=== PATIENT | female | born 1955 | race African-American/Black ===

== ENCOUNTER 2018-07-23 17:32 | Observation (INO) | payer BC, OTHER ==
[2018-07-23] MEDS ORDERED: SODIUM CHLORIDE 500 ML IV STA (17:56)
[2018-07-23] MEDS ORDERED: ACETAMINOPHEN 1000 MG/100 ML VIAL (NON FORMULARY) IVPB ONE (17:58)
--- NOTE | 2018-07-23 18:05 | PDOC ---
History of Present Illness - General Chief Complaint: Syncope/Near Syncope Stated Complaint: DIZZY, FAINT Time Seen by Provider: 07/23/18 17:48 History Source: Patient Exam Limitations: No Limitations - History of Present Illness Initial Comments: 07/23/18 18:00 Patient is a 62F with history of HTN, DM, HLD, prior stroke here today complaining of syncope. Patient states that she had a headache, worse on the right aspect of her head, then started feeling weak and dizzy, nearly passing out. Did not lose consciousness. Did not strike head. 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 Event happened after three hour restorationism service. Denies chest pain, shortness of breath, leg swelling, prior blood clots, fevers , chills, nausea, vomiting. Denies abdominal pain. Endorses polyuria related to her diabetes. No headache at this time. NIH Stroke Scale - Last Known Well Date/Time & Onset Date Last Known Well: 07/23/18 Time Last Known Well: 16:45 - Initial Evaluation Level of consciousness: Alert Ask patient the month and their age: Answers both correctly Ask patient to open & close eyes; make fist and let go: Obeys both correctly Best gaze (horizontal eye movement): Normal Visual field testing: No visual field loss Facial paresis (Show teeth/raise eyebrows/close eyes tight): Normal symmetrical movement Motor Function: Left Arm: Normal Motor Function: Right Arm: Normal (extends arm 90 (or 45) degrees for 10 seconds without drift Motor Function: Left Leg: Normal (extends leg 30 degrees for 5 seconds without drift) Motor Function: Right Leg: Normal (extends leg 30 degrees for 5 seconds without drift) Limb Ataxia: No ataxia Sensory(Use pinprick test arms,legs,trunk,face/side to side): Normal Best language (Describe picture, name items, read sentences): No Aphasia Dysarthria (read several words): Normal articulation Extinction and Inattention: No abnormality - Total Score NIH Stroke Scale Score: 0 Past History - Past Medical History Allergies/Adverse Reactions: Allergies Allergy/AdvReac Type Severity Reaction Status Date / Time No Known Allergies Allergy Verified 07/23/18 17:56 Home Medications: Ambulatory Orders Metformin HCl [Metformin HCl ER] 1 gm PO BID 06/27/15 Metoprolol Tartrate 25 mg PO BID 06/27/15 Aspirin Coated [Ecotrin -] 81 mg PO DAILY #0 tablet.ec 06/28/15 Atorvastatin Calcium [Lipitor] 20 mg PO HS 07/23/18 Glimepiride [Amaryl -] 2 mg PO ACDIN 07/23/18 Glimepiride [Amaryl -] 4 mg PO AM 07/23/18 Lisinopril [Zestril] 30 mg PO DAILY 07/23/18 Vitamin A Palmitate/B-Carotene [Vit A-Beta Caroten 25,000 Unit] 1 tab PO DAILY 07/23/18 Anemia: No Asthma: Yes Cancer: No Cardiac Disorders: No CVA: Yes (CVA 2014 - NO RESIDUAL) COPD: No CHF: No Dementia: No Diabetes: Yes (NIDDM) GI Disorders: No Disorders: No HTN: Yes Hypercholesterolemia: Yes Liver Disease: No Seizures: No Thyroid Disease: No - Surgical History Abdominal Surgery: No Appendectomy: No Cardiac Surgery: No Cholecystectomy: No Lung Surgery: No 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 No weakness. HEAD, EYES, EARS, NOSE AND THROAT: No change in vision. No sore throat. CARDIOVASCULAR: No chest pain or shortness of breath RESPIRATORY: No cough, wheezing, or hemoptysis. GASTROINTESTINAL: No nausea, vomiting, diarrhea or constipation. GENITOURINARY: No dysuria, frequency, or change in urination. MUSCULOSKELETAL: No joint or muscle swelling or pain. No neck or back pain. SKIN: No rash NEUROLOGIC: +headache, no vertigo, loss of consciousness, or change in strength/ sensation. ENDOCRINE: No increased thirst. No abnormal weight change HEMATOLOGIC/LYMPHATIC: No anemia, easy bleeding, or history of blood clots. ALLERGIC/IMMUNOLOGIC: No hives or skin allergy. *Physical Exam - Physical Exam Comments: 07/23/18 18:11 GENERAL: Awake, alert, and fully oriented, in no acute distress HEAD: No signs of trauma, normocephalic, atraumatic EYES: PERRLA, EOMI, sclera anicteric, conjunctiva clear ENT: Auricles normal inspection, hearing grossly normal, nares patent, oropharynx clear without exudates. Moist mucosa NECK: Normal ROM, supple, no lymphadenopathy, JVD, or masses LUNGS: No distress, speaks full sentences, clear to auscultation bilaterally HEART: Regular rate and rhythm, normal S1 and S2, no murmurs, rubs or gallops, peripheral pulses normal and equal bilaterally. ABDOMEN: Soft, nontender, normoactive bowel sounds. No guarding, no rebound. No masses EXTREMITIES: Normal inspection, Normal range of motion, no edema. No clubbing or cyanosis. NEUROLOGICAL: Cranial nerves II through XII grossly intact. Normal speech, no focal sensorimotor deficits SKIN: Warm, Dry, normal turgor, no rashes or lesions noted. ED Treatment Course - LABORATORY CBC & Chemistry Diagram: 07/23/18 18:00 07/23/18 18:00 - RADIOLOGY Radiology Studies Ordered: Category Date Time Status HEAD CT WITHOUT CONTRAST [CT] Stat CT Scan 07/23/18 17:57 Ordered CHEST X-RAY PORTABLE* [RAD] Stat Radiology 07/23/18 17:57 Ordered Medical Decision Making - Medical Decision Making 07/23/18 18:11 Patient is a 62F with history of HTN, HLD, DM, CVA here today with near syncope. Vitals normal and stable. EKG shows 1st degree av block (IL 220) with LAFB pattern. No st elevations/ depressions. Normal axis. Normal intervals. DDx includes, but is not limited to: dehydration 2/2 diabetes, vasovagal, arrhythmia, sah. Will give fluids, cardiac labs, cxr, head ct. Fingerstick 300. 07/23/18 18:39 CBC normal. CMP reassuring. Trop detectable at 0.05. CXR and CT Head pending. 07/23/18 19:[address] Wells. *DC/Admit/Observation/Transfer Diagnosis at time of Disposition: Syncope - Discharge Dispostion Condition at time of disposition: Stable - Referrals - Patient Instructions - Post Discharge Activity
[2018-07-23 18:09] VITALS: BMI 25.7
[2018-07-23] MEDS ORDERED: ACETAMINOPHEN INJECTION 100 ML IVPB ONE (18:12)
[2018-07-23 18:18] LABS: BASO % 0.3 % (0-2.0); EOS % 0.6 % (0-4.5); HEMATOCRIT 43.3 % (32.4-45.2); HEMOGLOBIN 13.5 GM/dL (10.7-15.3); LYMPH % 30.1 % (8-40); MCH 24.5 pg (25.7-33.7); MCHC 31.3 g/dl (32.0-36.0); MEAN CELL VOLUME 78.5 fl (80-96); MEAN PLT VOLUME 9.1 fl (7.5-11.1); MONO % 7.4 % (3.8-10.2); NEUT % 61.6 % (42.8-82.8); PLATELET COUNT 226 K/MM3 (134-434); RBC 5.52 M/mm3 (3.60-5.2); RDW 14.1 % (11.6-15.6); WHITE BLOOD COUNT 7.9 K/mm3 (4.0-10.0)
--- NOTE | 2018-07-23 18:26 | PDOC ---
Documentation entered by Chavo Peng SCRIBE, acting as scribe for Ila Huynh MD. Ila Huynh MD: This documentation has been prepared by the armineDanish Daniel, SCRIBE, under my direction and personally reviewed by me in its entirety. I confirm that the documentation accurately reflects all work, treatment, procedures, and medical decision making performed by me. Attending Attestation - Resident Resident Name: Joshua Kraft - ED Attending Attestation I have performed the following: I have examined & evaluated the patient, The case was reviewed & discussed with the resident, I agree w/resident's findings & plan, Exceptions are as noted - HPI HPI: 07/23/18 18:09 The patient is a 62 year old female with a past medical history of HTN, HLD, CVA , and diabetes here today for evaluation of syncope. The patient reports that she was at a 3 hour temple session when she had a syncopal episode. She denies losing consciousness or head strike. She also reports a headache prior to the episode that was right sided and has since resolved. Patient denies lightheadedness. Denies fever, chills. Denies chest pain, shortness of breath. Denies nausea, vomiting, diarrhea, abdominal pain. Allergies: NKA - Physicial Exam PE: GENERAL: Awake, alert, and fully oriented, in no acute distress HEAD: No signs of trauma EYES: PERRLA, EOMI, sclera anicteric, conjunctiva clear ENT: Auricles normal inspection, hearing grossly normal, nares patent, oropharynx clear without exudates. Moist mucosa NECK: Normal ROM, supple, no lymphadenopathy, JVD, or masses LUNGS: Breath sounds equal, clear to auscultation bilaterally. No wheezes, and no crackles HEART: Regular rate and rhythm, normal S1 and S2, no murmurs, rubs or gallops ABDOMEN: Soft, nontender, normoactive bowel sounds. No guarding, no rebound. No masses EXTREMITIES: Normal range of motion, no edema. No clubbing or cyanosis. No cords, erythema, or tenderness NEUROLOGICAL: Cranial nerves II through XII grossly intact. Normal speech. Motor and sensation intact SKIN: Warm, Dry, normal turgor, no rashes or lesions noted. - Medical Decision Making Pt with near syncope earlier today. History of prior spontaneous ICH in the occipital area s/p evacuation in the past. Near syncope was preceded by R frontal RICKETTS. Will obtain CTH, as well as labs. NIH Stroke Scale - Last Known Well Date/Time & Onset Date Last Known Well: 07/23/18 - Initial Evaluation Level of consciousness: Alert Ask patient the month and their age: Answers both correctly Ask patient to open & close eyes; make fist and let go: Obeys both correctly Best gaze (horizontal eye movement): Normal Visual field testing: No visual field loss Facial paresis (Show teeth/raise eyebrows/close eyes tight): Normal symmetrical movement Motor Function: Left Arm: Normal Motor Function: Right Arm: Normal (extends arm 90 (or 45) degrees for 10 seconds without drift Motor Function: Left Leg: Normal (extends leg 30 degrees for 5 seconds without drift) Motor Function: Right Leg: Normal (extends leg 30 degrees for 5 seconds without drift) Limb Ataxia: No ataxia Sensory(Use pinprick test arms,legs,trunk,face/side to side): Normal Best language (Describe picture, name items, read sentences): No Aphasia Dysarthria (read several words): Normal articulation Extinction and Inattention: No abnormality - Total Score NIH Stroke Scale Score: 0
[2018-07-23 18:30] LABS: INR 1.06 (0.83-1.09); PROTHROMBIN TIME (PATIENT) 12.5 SEC (9.7-13.0)
[2018-07-23 18:36] LABS: ALBUMIN 4.3 g/dl (3.4-5.0); BILIRUBIN,TOTAL 0.6 mg/dL (0.2-1); CALCIUM 9.7 mg/dL (8.5-10.1); POTASSIUM 3.8 mmol/L (3.5-5.1); TOT PROT 8.1 g/dl (6.4-8.2)
--- NOTE | 2018-07-23 19:08 | PDOC ---
*Physical Exam - Vital Signs Last Vital Signs Temp Pulse Resp BP Pulse Ox 98.5 F 77 13 145/100 94 L 07/23/18 17:33 07/23/18 17:33 07/23/18 17:33 07/23/18 17:33 07/23/18 17:33 ED Treatment Course - LABORATORY CBC & Chemistry Diagram: 07/23/18 18:00 07/23/18 18:00 - ADDITIONAL ORDERS Additional order review: Laboratory Results 07/23/18 07/23/18 07/23/18 18:06 18:00 18:00 PT with INR 12.50 INR 1.06 Sodium 135 L Potassium 3.8 Chloride 97 L Carbon Dioxide 29 Anion Gap 9 BUN 9 Creatinine 1.0 Est GFR (CKD-EPI)AfAm 70.91 Est GFR (CKD-EPI)NonAf 61.19 POC Glucometer 316 Random Glucose 294 H Calcium 9.7 Magnesium 2.0 Total Bilirubin 0.6 AST 49 H ALT 64 H Alkaline Phosphatase 128 H Creatine Kinase 250 H Creatine Kinase Index 0.8 CK-MB (CK-2) 2.0 Troponin I 0.05 Total Protein 8.1 Albumin 4.3 07/23/18 07/23/18 18:06 18:00 RBC 5.52 H MCV 78.5 L MCHC 31.3 L RDW 14.1 MPV 9.1 Neutrophils % 61.6 Lymphocytes % 30.1 D Monocytes % 7.4 Eosinophils % 0.6 Basophils % 0.3 POC Glucometer 316 - Medications Given in the ED: ED Medications Discontinued Medications Generic Name Dose Route Start Last Admin Trade Name Freq PRN Reason Stop Dose Admin Acetaminophen 1,000 mg 07/23/18 17:58 07/23/18 18:18 Ofirmev Injection - IVPB 07/23/18 17:59 1,000 mg ONCE ONE Administration Sodium Chloride 500 mls @ 500 mls/hr 07/23/18 17:56 07/23/18 18:18 Normal Saline - IV 07/23/18 18:55 500 mls/hr ASDIR STA Administration Medical Decision Making - Medical Decision Making 07/23/18 19:05 Sign out received from Dr Kraft. Neelam Brady is a 62yo woman with a PMH of HTN, HLD, DM, prior CVA who presented to the ED reporting syncope/near-syncope and a headache. ED workup so far: - EKG w/ 1st degree block, normal axis, normal QRS, no concerning ST or t-wave changes - Glucose 300 on arrival. Trop 0.05, remainder of labs unremarkable Pt is currently at CT, will re-examine when returned 07/23/18 19:42 - Reassessed Ms Brady. Awake, alert, normal neuro exam, pleasant. Willing to stay for obs - CT completed, not yet uploaded. Will admit pending CT results 07/23/18 20:57 - CT read completed, no acute injury - Spoke to Ms Brady regarding admission. She is reluctant to stay at this point as her CT was negative. Requesting that we speak to her PMD, Dr Bland. Will attempt to reach regarding plan for admission 07/23/18 21:20 - Dr Bland could not be reached, phone number in records is apparently not correct - Ms Brady now agreeing to stay after discussion with family at bedside - Microblog sent. Spoke to Dr Centeno regarding admission to tele obs Discussed with Dr Guzman. Soraida Wells PGY1 *DC/Admit/Observation/Transfer Diagnosis at time of Disposition: Syncope - Discharge Dispostion Condition at time of disposition: Stable Decision to Admit order: Yes - Referrals - Patient Instructions - Post Discharge Activity
[2018-07-23] MEDS ORDERED: METOPROLOL TARTRATE 25 MG TABLET (FP) PO ONE (21:20)
--- NOTE | 2018-07-23 22:19 | HP ---
CHIEF COMPLAINT: weakness PCP: Dr. Cedeno HISTORY OF PRESENT ILLNESS: Patient is a 62 yo F with a PMHx of HTN, HLD, DM, CVA (3 years ago), presented to the ED because of weakness she experienced while walking in to her house after coming back from a 3 hour druze session at around 5pm. She had a feeling that she was going to pass out. Her family then decided to take her to the ED for further evaluation. She denies falling, LOC, and head trauma. She said this never happened to her before. She admits she did not eat anything throughout the day and drank 1 bottle of water. Before the onset of her weakness , she experienced a pressure on the R side of her head that lasted a few minutes. She denies dizziness, palpitations, sob, chest pain, numbness, tingling , nausea, vomiting, urinary changes, abdominal pain, fevers, chills. ER course was notable for: (1) EKG w/ 1st degree block, normal axis, normal QRS, no concerning ST or t- wave changes (2) Glucose 294 (3) Head CT sanitation director read: unremarkable Recent Travel: denies PAST MEDICAL HISTORY: per HPI Social History: Smoking: denies Alcohol: denies Drugs: denies Family History: Allergies No Known Allergies Allergy (Verified 07/23/18 17:56) HOME MEDICATIONS: Home Medications Medication Instructions Recorded Metformin HCl [Metformin HCl ER] 1 gm PO BID 06/27/15 Metoprolol Tartrate 25 mg PO BID 06/27/15 Aspirin Coated [Ecotrin -] 81 mg PO DAILY #0 tablet.ec 06/28/15 Atorvastatin Calcium [Lipitor] 20 mg PO HS 07/23/18 Glimepiride [Amaryl -] 2 mg PO ACDIN 07/23/18 Glimepiride [Amaryl -] 4 mg PO AM 07/23/18 Lisinopril [Zestril] 30 mg PO DAILY 07/23/18 Vitamin A Palmitate/B-Carotene 1 tab PO DAILY 07/23/18 [Vit A-Beta Caroten 25,000 Unit] REVIEW OF SYSTEMS CONSTITUTIONAL: Absent: fever, chills, diaphoresis, malaise, loss of appetite, weight change HEENT: Absent: rhinorrhea, nasal congestion, throat pain, throat swelling, difficulty swallowing, mouth swelling, ear pain, eye pain, visual changes CARDIOVASCULAR: Absent: chest pain, syncope, palpitations, irregular heart rate, lightheadedness , peripheral edema RESPIRATORY: Absent: cough, shortness of breath, dyspnea with exertion, orthopnea, wheezing, stridor, hemoptysis GASTROINTESTINAL: Absent: abdominal pain, abdominal distension, nausea, vomiting, diarrhea, constipation, melena, hematochezia GENITOURINARY: Absent: dysuria, frequency, urgency, hesitancy, hematuria, flank pain, genital pain MUSCULOSKELETAL: Absent: myalgia, arthralgia, joint swelling, back pain, neck pain SKIN: Absent: rash, itching, pallor HEMATOLOGIC/IMMUNOLOGIC: Absent: easy bleeding, easy bruising, lymphadenopathy, frequent infections ENDOCRINE: Absent: unexplained weight gain, unexplained weight loss, heat intolerance, cold intolerance NEUROLOGIC: Absent: focal weakness or paresthesias, dizziness, unsteady gait, seizure, mental status changes, bladder or bowel incontinence PHYSICAL EXAMINATION Vital Signs - 24 hr 07/23/18 07/23/18 07/23/18 17:33 20:16 21:00 Temperature 98.5 F 98.2 F Pulse Rate 77 Pulse Rate [ 80 Right Radial] Respiratory 13 20 Rate Blood Pressure 145/100 Blood Pressure 171/100 H [Right Arm] O2 Sat by Pulse 94 L 98 98 Oximetry (%) GENERAL: Awake, alert, and fully oriented, in no acute distress. HEAD: Normal with no signs of trauma. EYES: Pupils equal, round and reactive to light, extraocular movements intact, sclera anicteric, conjunctiva clear EARS, NOSE, THROAT: oropharynx clear without exudates. Moist mucous membranes. NECK: Normal range of motion, supple without lymphadenopathy, JVD, or masses. LUNGS: Breath sounds equal, clear to auscultation bilaterally. No wheezes, and no crackles. HEART: Regular rate and rhythm, normal S1 and S2 without murmur, rub or gallop. ABDOMEN: Soft, nontender, not distended, normoactive bowel sounds, no guarding, no rebound, no masses. MUSCULOSKELETAL: Normal range of motion at all joints. No bony deformities or tenderness. LOWER EXTREMITIES: 2+ pulses, warm, well-perfused. No calf tenderness. No peripheral edema. NEUROLOGICAL: Cranial nerves II-XII intact. Normal speech. Laboratory Results - last 24 hr 07/23/18 07/23/18 07/23/18 18:00 18:00 18:00 WBC 7.9 RBC 5.52 H Hgb 13.5 Hct 43.3 MCV 78.5 L MCH 24.5 L MCHC 31.3 L RDW 14.1 Plt Count 226 MPV 9.1 Absolute Neuts (auto) 4.9 Neutrophils % 61.6 Lymphocytes % 30.1 D Monocytes % 7.4 Eosinophils % 0.6 Basophils % 0.3 Nucleated RBC % 0 PT with INR 12.50 INR 1.06 Sodium 135 L Potassium 3.8 Chloride 97 L Carbon Dioxide 29 Anion Gap 9 BUN 9 Creatinine 1.0 Est GFR (CKD-EPI)AfAm 70.91 Est GFR (CKD-EPI)NonAf 61.19 POC Glucometer Random Glucose 294 H Calcium 9.7 Magnesium 2.0 Total Bilirubin 0.6 AST 49 H ALT 64 H Alkaline Phosphatase 128 H Creatine Kinase 250 H Creatine Kinase Index 0.8 CK-MB (CK-2) 2.0 Troponin I 0.05 Total Protein 8.1 Albumin 4.3 07/23/18 18:06 WBC RBC Hgb Hct MCV MCH MCHC RDW Plt Count MPV Absolute Neuts (auto) Neutrophils % Lymphocytes % Monocytes % Eosinophils % Basophils % Nucleated RBC % PT with INR INR Sodium Potassium Chloride Carbon Dioxide Anion Gap BUN Creatinine Est GFR (CKD-EPI)AfAm Est GFR (CKD-EPI)NonAf POC Glucometer 316 Random Glucose Calcium Magnesium Total Bilirubin AST ALT Alkaline Phosphatase Creatine Kinase Creatine Kinase Index CK-MB (CK-2) Troponin I Total Protein Albumin ASSESSMENT/PLAN: 62 yo F with a PMHx of HTN, HLD, DM, CVA (3 years ago), presented to the ED because of weakness . #Weakness with Presyncope -likely from HTN vs hyperglycemia -tele monitoring -echo -EKG w/ 1st degree block. shown on previous EKG -re-evaluate B jarvis use with 1st degree block. -trop 0.05, FU repeat -500ml bolus in ER -Head CT negative -FU U/A #Hyperglycemia -elevated at 294. -Hgb A1c -hold home Metformin, Glimerperide -SSI #HTN -1x Home metoprolol dose in ED -monitor BP #Transaminitis/ ELevated CK -likely from statin use -follow up AM labs -if still elevated consider Abd U/s or outpatient follow up. #Microcytosis -no change from previous admission -work up outpatient #FEN -no Iv fluids -monitor lytes -sodium diet #DVT ppx -hep sq Visit type - Emergency Visit Emergency Visit: Yes ED Registration Date: 07/23/18 Care time: The patient presented to the Emergency Department on the above date and was hospitalized for further evaluation of their emergent condition. - New Patient This patient is new to me today: Yes Date on this admission: 07/25/18 - Critical Care Critical Care patient: No
[2018-07-23] MEDS ORDERED: METOPROLOL TARTRATE 25 MG TABLET (FP) ONE (22:51)
--- NOTE | 2018-07-23 23:02 | PN ---
Teaching Attending Note Name of Resident: Hazel Centeno ATTENDING PHYSICIAN STATEMENT I saw and evaluated the patient. I reviewed the resident's note and discussed the case with the resident. I agree with the resident's findings and plan as documented. SUBJECTIVE: This is a 62 year old woman with a history of HTN, hyperlipidemia, type 2 DM, CVA who comes to the ED complaining of generalized weakness with a sensation that she was going to pass out. This occurred while she was walking into her house after returning from religion. Family was with her and they decided to bring her to the ED. She denies CP, palpitations, SOB, nausea. OBJECTIVE: Vital Signs Period Temp Pulse Resp BP Sys/Alaniz Pulse Ox Last 24 Hr 98.2 F-98.5 F 77-80 13-20 145-171/100-100 94-98 HEART: S1S2, RRR LUNGS: Clear ABDOMEN: Soft, non-tender, non-distended, normal BS EXTREMITIES: No edema NEUROLOGICAL: Alert, oriented, CN intact, speech clear, strength 5/5 in all extremities, sensation intact, (-) pronator drift, (-) Romberg, normal gait Laboratory Tests 07/23/18 07/23/18 07/23/18 18:00 18:00 18:00 WBC 7.9 RBC 5.52 H Hgb 13.5 Hct 43.3 MCV 78.5 L MCH 24.5 L MCHC 31.3 L RDW 14.1 Plt Count 226 MPV 9.1 Absolute Neuts (auto) 4.9 Neutrophils % 61.6 Lymphocytes % 30.1 D Monocytes % 7.4 Eosinophils % 0.6 Basophils % 0.3 Nucleated RBC % 0 PT with INR 12.50 INR 1.06 Sodium 135 L Potassium 3.8 Chloride 97 L Carbon Dioxide 29 Anion Gap 9 BUN 9 Creatinine 1.0 Est GFR (CKD-EPI)AfAm 70.91 Est GFR (CKD-EPI)NonAf 61.19 POC Glucometer Random Glucose 294 H Calcium 9.7 Magnesium 2.0 Total Bilirubin 0.6 AST 49 H ALT 64 H Alkaline Phosphatase 128 H Creatine Kinase 250 H Creatine Kinase Index 0.8 CK-MB (CK-2) 2.0 Troponin I 0.05 Total Protein 8.1 Albumin 4.3 07/23/18 18:06 WBC RBC Hgb Hct MCV MCH MCHC RDW Plt Count MPV Absolute Neuts (auto) Neutrophils % Lymphocytes % Monocytes % Eosinophils % Basophils % Nucleated RBC % PT with INR INR Sodium Potassium Chloride Carbon Dioxide Anion Gap BUN Creatinine Est GFR (CKD-EPI)AfAm Est GFR (CKD-EPI)NonAf POC Glucometer 316 Random Glucose Calcium Magnesium Total Bilirubin AST ALT Alkaline Phosphatase Creatine Kinase Creatine Kinase Index CK-MB (CK-2) Troponin I Total Protein Albumin Home Medications Medication Instructions Recorded Metformin HCl [Metformin HCl ER] 1 gm PO BID 06/27/15 Metoprolol Tartrate 25 mg PO BID 06/27/15 Aspirin Coated [Ecotrin -] 81 mg PO DAILY #0 tablet.ec 06/28/15 Atorvastatin Calcium [Lipitor] 20 mg PO HS 07/23/18 Glimepiride [Amaryl -] 2 mg PO ACDIN 07/23/18 Glimepiride [Amaryl -] 4 mg PO AM 07/23/18 Lisinopril [Zestril] 30 mg PO DAILY 07/23/18 Vitamin A Palmitate/B-Carotene 1 tab PO DAILY 07/23/18 [Vit A-Beta Caroten 25,000 Unit] ASSESSMENT AND PLAN: This is a 62 year old woman with a history of HTN, hyperlipidemia, type 2 DM, CVA who presented to the ED after experiencing generalized weakness with a sensation that she was going to pass out. 1. Weakness with near syncope - Neurological exam is non-focal - Will observe on telemetry - Serial troponins - Echocardiogram 2. Elevated CK, hepatic transaminitis - Likely statin-induced - Monitor LFTs, CK - RUQ US 3. HTN - Continue Lopressor, lisinopril 4. Hyperlipidemia - Continue Lipitor 5. Type 2 DM, uncontrolled - Hold metformin, glimepiride - Fingersticks with Novolog sliding scale - Check HgbA1c 6. History of CVA
[2018-07-24 01:52] LABS: EPI CELLS 2.7 /HPF (0-5/HPF); HYALINE CASTS 0 /lpf (0-8); PH,URINE 7.5 (5.0-8.0); URINE APPEARANCE CLEAR; URINE BACTERIA 133.1 /hpf (NEGATIVE); URINE BILIRUBIN NEGATIVE (NEGATIVE); URINE COLOR YELLOW; URINE GLUCOSE (UA) 3+ (NEGATIVE); URINE KETONE NEGATIVE (NEGATIVE); URINE LEUK ESTERASE TRACE (NEGATIVE); URINE NITRITE NEGATIVE (NEGATIVE); URINE PROTEIN NEGATIVE (NEGATIVE); URINE RBC 10 /hpf (0-4); URINE UROBILINOGEN 0.2 mg/dL (0.2-1.0); URINE WBC 4 /hpf (0-5)
[2018-07-24] MEDS ORDERED: HEPARIN NA (PORCINE) 5,000 UNITS/ML 1ML VIAL ONE (06:43)
[2018-07-24] MEDS: HEPARIN NA (PORCINE) 5,000 UNITS/ML 1ML VIAL SQ SCH ×3 (06:45→22:35)
[2018-07-24] MEDS: INSULIN SLIDING SCALE (NOVOLOG) 1 VIAL SQ SCH ×4 (06:57→22:36)
[2018-07-24 06:58] LABS: BASO % 0.3 % (0-2.0); EOS % 0.6 % (0-4.5); HEMATOCRIT 40.8 % (32.4-45.2); HEMOGLOBIN 13.2 GM/dL (10.7-15.3); LYMPH % 39.8 % (8-40); MCH 25.2 pg (25.7-33.7); MCHC 32.2 g/dl (32.0-36.0); MEAN CELL VOLUME 78.2 fl (80-96); MEAN PLT VOLUME 8.9 fl (7.5-11.1); MONO % 12.2 % (3.8-10.2); NEUT % 47.1 % (42.8-82.8); PLATELET COUNT 261 K/MM3 (134-434); RBC 5.22 M/mm3 (3.60-5.2); RDW 14.3 % (11.6-15.6); WHITE BLOOD COUNT 8.1 K/mm3 (4.0-10.0)
[2018-07-24 07:22] LABS: CHOLESTEROL 261 mg/dL (50-200); HDL CHOLESTEROL 38 mg/dL (40-60); TRIGLYCERIDES 243 mg/dL (0-150)
[2018-07-24 07:50] LABS: ALBUMIN 3.7 g/dl (3.4-5.0); BILIRUBIN,TOTAL 0.6 mg/dL (0.2-1); CALCIUM 9.3 mg/dL (8.5-10.1); MAGNESIUM 2.4 mg/dL (1.8-2.4); PHOSPHOROUS 3.8 mg/dL (2.5-4.9); TOT PROT 7.4 g/dl (6.4-8.2)
[2018-07-24] MEDS ORDERED: PATIENT'S OWN MEDICATION (NON-FORMULARY) (Lisinopril [Zestril] 30 MG) PO SCH (10:00)
[2018-07-24] MEDS: ASPIRIN COATED 81 MG TABLET.EC PO SCH (10:03)
[2018-07-24] MEDS: LISINOPRIL 20 MG, LISINOPRIL 10 MG PO SCH (10:04)
[2018-07-24] MEDS: METOPROLOL TARTRATE 25 MG TABLET (FP) PO SCH ×2 (10:04→22:35)
--- NOTE | 2018-07-24 11:09 | EKG ---
Test Reason : Blood Pressure : / mmHG Vent. Rate : 061 BPM Atrial Rate : 061 BPM P-R Int : 228 ms QRS Dur : 114 ms QT Int : 438 ms P-R-T Axes : 060 -40 -06 degrees QTc Int : 440 ms SINUS RHYTHM WITH 1ST DEGREE A-V BLOCK POSSIBLE LEFT ATRIAL ENLARGEMENT LEFT AXIS DEVIATION INCOMPLETE RIGHT BUNDLE BRANCH BLOCK LEFT VENTRICULAR HYPERTROPHY NONSPECIFIC T WAVE ABNORMALITY ABNORMAL ECG WHEN COMPARED WITH ECG OF 23-JUL-2018 17:35, NO SIGNIFICANT CHANGE WAS FOUND Confirmed by KELSEY CSHMIDT MD ([id number]) on 07/24/2018 11:09:14 AM Referred By: Confirmed By:KELSEY SCHMIDT MD
--- NOTE | 2018-07-24 11:19 | EKG ---
Test Reason : Blood Pressure : / mmHG Vent. Rate : 070 BPM Atrial Rate : 070 BPM P-R Int : 230 ms QRS Dur : 116 ms QT Int : 414 ms P-R-T Axes : 052 -48 035 degrees QTc Int : 447 ms SINUS RHYTHM WITH 1ST DEGREE A-V BLOCK LEFT ANTERIOR FASCICULAR BLOCK LEFT VENTRICULAR HYPERTROPHY WITH QRS WIDENING ABNORMAL ECG WHEN COMPARED WITH ECG OF 28-JUN-2015 00:15, NONSPECIFIC T WAVE ABNORMALITY HAS REPLACED INVERTED T WAVES IN INFERIOR LEADS Confirmed by KELSEY SCHMIDT MD ([id number]) on 07/24/2018 11:18:42 AM Referred By: Confirmed By:KELSEY SCHMIDT MD
[2018-07-24] MEDS ORDERED: INSULIN (NOVOLOG MIX 70/30) 100 UNITS/ML MDV SQ ONE (11:45)
--- NOTE | 2018-07-24 13:56 | PN ---
Teaching Attending Note Name of Resident: Yamileth Palm ATTENDING PHYSICIAN STATEMENT I saw and evaluated the patient. I reviewed the resident's note and discussed the case with the resident. I agree with the resident's findings and plan as documented. SUBJECTIVE:asymptomatic. wants to go home. deneis Cp, SOB, fever, chills, N/V/C/ D, recent medication changes, recent illness or contact OBJECTIVE: Last Vital Signs Temp Pulse Resp BP Pulse Ox 98.3 F 60 18 146/100 97 07/24/18 05:55 07/24/18 09:22 07/24/18 09:22 07/24/18 09:22 07/24/18 09:22 General NAD HEENT no carotid bruit CV S1 S2 RRR no murmur/rub/gallop no chest wall tenderness Lungs CTA B/L no wheezing/rales/rhonchi Abdomen soft NT/ND Extremities no pedal edema ASSESSMENT AND PLAN: 62 yo F iwth PMH of HTN, hyperlipidemia, type 2 DM, CVA who presented to the ED after experiencing generalized weakness with a sensation that she was going to pass out and found to have elevated troponin 1. Weakness- near syncope. possible hyperglycemia vs HTN urgency. BP was high when first arrived. (171/100) and sugar elevated 200+ which could have caused weakness. has since resolved. Head CT negative for acute pathology 2. Troponemia- slowly trending up. does not have active CP( but is DM with multiple risk factors). do not think this cause of near syncope and had cardiac event causing her initial symptoms. as there is no explanation (unless it was from HTN and suspect it was higher prior to arrival) on arrival will trend till it peaks. echo pending. call over to PMD to find out when last stress test was. may require one at this time once peaks. consider cardio eval 3. HTN- uncontrolled. improved since arrival however not at goal. pt not agreeable to adjusting medications until speak with PMD 4. DM- uncontrolled. A1c 11.5. does not recall last value. explained need of insulin at this time. refused to take insulin. explained can optimize oral agents but will not be good enough to optimize sugars at this time. verbalized understanding that this will be inferior treatment. will not allow adjustment of any medications at this time 5. Dyslipidemia- LDL above goal at 185. notified of values but refuses adjustment to high intensity statin 6. Transaminitis- now resolved 7. Hx of CVA- no deficits 8. DVT ppx- hep sq 9. detailed conversation with daughter present at bedside. expressed concern for labs and that although pt is asymptomatic requires further testing and monitoring. patient very upset and wants to leave and have further testing as outpatient. explained that this is unsafe at this time until more information can be obtained. will reach out to PMD to obtain more information and come up with plan for patient who wants to leave. Explained AMA which both patient and daughter verbalized understanding. willing to stay at this time.
--- NOTE | 2018-07-24 14:44 | PN ---
Physical Exam: SUBJECTIVE: Patient seen and examined at bedside. No acute events overnight. Pt expresses she is upset as a result of waiting in the ED. She denies lucas/d, f/c, n /v, sob, cp, abd pain, urinary/bowel symptoms. She is requesting to have us contact her PCP in regards to the treatment she has been getting at the hospital. OBJECTIVE: Vital Signs Temperature 98.3 F 07/24/18 05:55 Pulse Rate 60 07/24/18 09:22 Respiratory Rate 18 07/24/18 09:22 Blood Pressure 146/100 07/24/18 09:22 O2 Sat by Pulse Oximetry (%) 97 07/24/18 09:22 GENERAL: AAOx3. NAD. HEENT: AT/NC. EOMI. OLIVER. Moist mucus membranes. CV: RRR. Normal S1, S2. No murmurs noted. Pulm: CTA B/L. No wheezes, rhonchi, rales noted. Symmetric chest rise. Abd: Soft, NT/ND. +BS in all 4 Qs. Ext: No peripheral edema noted. CBCD WBC 8.1 K/mm3 (4.0-10.0) 07/24/18 06:07 RBC 5.22 M/mm3 (3.60-5.2) H 07/24/18 06:07 Hgb 13.2 GM/dL (10.7-15.3) 07/24/18 06:07 Hct 40.8 % (32.4-45.2) 07/24/18 06:07 MCV 78.2 fl (80-96) L 07/24/18 06:07 MCHC 32.2 g/dl (32.0-36.0) 07/24/18 06:07 RDW 14.3 % (11.6-15.6) 07/24/18 06:07 Plt Count 261 K/MM3 (134-434) 07/24/18 06:07 MPV 8.9 fl (7.5-11.1) 07/24/18 06:07 CMP Sodium 138 mmol/L (136-145) 07/24/18 06:05 Potassium 4.0 mmol/L (3.5-5.1) 07/24/18 06:05 Chloride 102 mmol/L (98-107) 07/24/18 06:05 Carbon Dioxide 30 mmol/L (21-32) 07/24/18 06:05 Anion Gap 7 MMOL/L (8-16) L 07/24/18 06:05 BUN 11 mg/dL (7-18) 07/24/18 06:05 Creatinine 1.0 mg/dL (0.55-1.3) 07/24/18 06:05 Calcium 9.3 mg/dL (8.5-10.1) 07/24/18 06:05 Total Bilirubin 0.6 mg/dL (0.2-1) 07/24/18 06:05 AST 34 U/L (15-37) 07/24/18 06:05 ALT 54 U/L (13-61) 07/24/18 06:05 Alkaline Phosphatase 122 U/L (45-117) H 07/24/18 06:05 Total Protein 7.4 g/dl (6.4-8.2) 07/24/18 06:05 Albumin 3.7 g/dl (3.4-5.0) 07/24/18 06:05 Active Medications Aspirin (Ecotrin -) 81 mg PO DAILY [facility] Last Admin: 07/24/18 10:03 Dose: 81 mg Heparin Sodium (Porcine) (Heparin -) 5,000 unit SQ TID [facility] Last Admin: 07/24/18 06:45 Dose: 5,000 unit Insulin Aspart (Novolog Vial Sliding Scale -) 1 vial SQ ACHS [facility]; Protocol Last Admin: 07/24/18 11:53 Dose: 10 units Lisinopril 20 mg/ Lisinopril (10 mg) 30 mg PO DAILY [facility] Last Admin: 07/24/18 10:04 Dose: 30 mg Metoprolol Tartrate (Lopressor -) 25 mg PO BID [facility] Last Admin: 07/24/18 10:04 Dose: 25 mg IMAGING: * Head CT: neg * Echo: No regional wall motion abn. EF 65-70%. Diastolic dysfxn, Grade II, c/w elevated L atrial pressure. Mild mitral annular calcification, mild mitral regurgitation. * CXR: New R hilar prominence; CT recommended. ASSESSMENT/PLAN: 62 yo F with a PMHx of HTN, HLD, DM, CVA (3 years ago), presented to the ED because of weakness admitted for near syncope episode. #Weakness with Near Syncope; possibly 2/2 hyperglycemia vs. HTN -tele monitoring -Echo noted above -Head CT negative #Elevated troponins; gradually trending upwards -Pt is currently asymptomatic, likely not cause of presyncopal episode however etiology unclear. -Trops 0.30 > 0.54; repeat at 6pm. Cont to trend until trops peak. -Echo pending -Cardio consult #DM -Hgb A1c 11.5 -hold home Metformin, Glimerperide -Pt currently refusing ISS, despite educating patient about risks and complications of DM. She verbalized understanding and refuses further medication adjustment at this time. Also spoke to pt's PCP, Dr. Cedeno who explained that pt does not take medications as prescribed and has poor follow up. #HTN; Uncontrolled. Cont home meds: -Lisinopril 30 QD -Metroprolol 25 BID #HLD -LDL 185 -Pt only amenable to change in current statin regimen if PMD notified; I spoke to Dr. Cedeno and made her aware of pt's non-adherence. Explained to pt that PMD agreed with our management. -d/c home statin and start Crestor 40 HS -if still elevated consider Abd U/s or outpatient follow up. #Transaminitis/ ELevated CK -resolved #Hx of CVA; stable. No residual deficits. #DVT ppx -SQH #FEN -no Iv fluids -monitor lytes -sodium diet Dispo -Throughly discussed multiple abnormal lab findings with patient and daughter at bedside. Pt was upset and non-adherent to medication regimen recommended. Explained that further testing is warranted as well as repeat lab work to monitor her troponins as they are trending upwards. Alternatively, explained that if pt wants to leave prior to completion of full workup, she may sign out AMA, but also made her aware of risks. Both daughter and pt verbalized understanding and willing to stay in the hospital at this time. Visit type - Emergency Visit Emergency Visit: Yes ED Registration Date: 07/23/18 Care time: The patient presented to the Emergency Department on the above date and was hospitalized for further evaluation of their emergent condition. - New Patient This patient is new to me today: Yes Date on this admission: 07/24/18 - Critical Care Critical Care patient: No
--- NOTE | 2018-07-24 15:47 | ECHO ---
Name: MONET, KATIE Exam:Adult Echocardiogram Study Date: 07/24/2018 02:54 PM Age: 62 yrs Reason For Study: LV Function Height: 66 in MMode/2D Measurements & Calculations IVSd: 1.2 cm Ao root diam: 3.0 cm LVIDd: 3.8 cm LA dimension: 3.3 cm LVIDs: 2.5 cm LVPWd: 0.93 cm EDV(Teich): 61.7 ml LVOT diam: 2.0 cm ESV(Teich): 22.2 ml TAPSE: 2.0 cm RV S Carlton: 12.2 cm/sec Doppler Measurements & Calculations MV E max carlton: 64.0 cm/sec Ao V2 max: 103.2 cm/sec MV A max carlton: 90.7 cm/sec Ao max P.3 mmHg MV E/A: 0.71 JOSE(V,D): 2.8 cm2 MV dec time: 0.27 sec LV V1 max P.5 mmHg Med Peak E' Carlton: 4.2 cm/sec LV V1 max: 93.6 cm/sec Med E/e': 15.1 Lat Peak E' Carlton: 6.2 cm/sec Lat E/e': 10.3 Procedure A complete two-dimensional transthoracic echocardiogram was performed (2D, M-mode, Doppler and color flow Doppler). Left Ventricle The left ventricle is normal in size. Left ventricular systolic function is normal. Ejection Fraction = 65- 70%. Diastolic dysfunction, Grade II, consistent with elevated left atrial pressure. Ratio E/E'= 15. No regional wall motion abnormalities noted. Right Ventricle The right ventricle is normal size. The right ventricular systolic function is normal. Atria The left atrial size is normal. Right atrial size is normal. Mitral Valve There is mild mitral annular calcification. There is mild mitral regurgitation. Tricuspid Valve The tricuspid valve is normal in structure and function. No tricuspid regurgitation. Aortic Valve The aortic valve is normal in structure and function. No aortic regurgitation is present. Pulmonic Valve The pulmonic valve is not well visualized. Great Vessels The aortic root is normal size. Pericardium/Pleura There is no pericardial effusion. Interpretation Summary The left ventricle is normal in size. Left ventricular systolic function is normal. No regional wall motion abnormalities noted. Ejection Fraction = 65-70%. Diastolic dysfunction, Grade II, consistent with elevated left atrial pressure. Ratio E/E'= 15 The right ventricular systolic function is normal. The left atrial size is normal. Right atrial size is normal. There is mild mitral annular calcification. There is mild mitral regurgitation. There is no pericardial effusion. Previous study is not available for comparison Jarad Palacio MD 07/24/2018 03:47 PM
[2018-07-24] MEDS ORDERED: ROSUVASTATIN CA 40 MG TABLET PO SCH (22:00)
[2018-07-24] MEDS ORDERED: PT OWN MED DRAWER 7, Y5N ONE (22:26)
[2018-07-24] MEDS: ROSUVASTATIN CA 20 MG TABLET (FP) PO SCH (22:38)
[2018-07-25] MEDS: INSULIN SLIDING SCALE (NOVOLOG) 1 VIAL SQ SCH ×4 (06:20→21:29)
[2018-07-25] MEDS: HEPARIN NA (PORCINE) 5,000 UNITS/ML 1ML VIAL SQ SCH ×3 (06:20→21:30)
--- NOTE | 2018-07-25 07:06 | PN ---
Physical Exam: SUBJECTIVE: Patient seen and examined at bedside. No acute events overnight. Denies chest pain, n/v, sob, abd pain, urinary/bowel symptoms. OBJECTIVE: Vital Signs Period Temp Pulse Resp BP Sys/Alaniz Pulse Ox Last 24 Hr 97.8 F-98.4 F 53-71 16-20 125-168/80-101 97-98 GENERAL: AAOx3. NAD. HEENT: AT/NC. EOMI. OLIVER. Moist mucus membranes. CV: RRR. Normal S1, S2. No murmurs noted. Pulm: CTA B/L. No wheezes, rhonchi, rales noted. Symmetric chest rise. Abd: Soft, NT/ND. +BS in all 4 Qs. Ext: No peripheral edema noted. B/l LE sensation intact. CBC, BMP 07/24/18 06:07 07/24/18 06:05 Active Medications Aspirin (Ecotrin -) 81 mg PO DAILY [facility] Last Admin: 07/24/18 10:03 Dose: 81 mg Heparin Sodium (Porcine) (Heparin -) 5,000 unit SQ TID [facility] Last Admin: 07/25/18 06:20 Dose: 5,000 unit Insulin Aspart (Novolog Vial Sliding Scale -) 1 vial SQ ACHS [facility]; Protocol Last Admin: 07/25/18 06:20 Dose: 2 units Lisinopril 20 mg/ Lisinopril (10 mg) 30 mg PO DAILY [facility] Last Admin: 07/24/18 10:04 Dose: 30 mg Metoprolol Tartrate (Lopressor -) 25 mg PO BID [facility] Last Admin: 07/24/18 22:35 Dose: 25 mg Rosuvastatin Calcium (Crestor -) 40 mg PO HS [facility] Last Admin: 07/24/18 22:38 Dose: Not Given IMAGING: * Head CT: neg * Echo: No regional wall motion abn. EF 65-70%. Diastolic dysfxn, Grade II, c/w elevated L atrial pressure. Mild mitral annular calcification, mild mitral regurgitation. * CXR: New R hilar prominence; CT recommended. * Chest CT: Low attenuation RUL mass, medially measuring 3.6 x 3.4 cm abutting R lateral margin of mediastinum at level of ascending aorta. 5 mm nodule in L lateral costophrenic angle unchanged since prior exam. ASSESSMENT/PLAN: 62 yo F with a PMHx of HTN, HLD, DM, CVA (3 years ago), presented to the ED because of weakness admitted for near syncope episode. #Elevated troponins; gradually trending upwards -Pt is currently asymptomatic, likely not cause of presyncopal episode however etiology unclear. -Trops 0.30 > 0.54 > 0.73; Per cardio (Dr. Palacio), cont to trend until trops peak. -Echo noted above; diastolic dysfxn, Grade II. Mild annular calcification, mild MR. #R hilar prominence; found on CXR -CT chest noted above; recommend pulm eval. Pt has no smoking history. #Weakness with Near Syncope; possibly 2/2 hyperglycemia vs. HTN -Tele monitoring -Echo noted above -Head CT negative #DM -Hgb A1c 11.5 -hold home Metformin, Glimepiride -BGMS ACHS -Pt currently refusing ISS, despite educating patient about risks and complications of DM. She verbalized understanding and refuses further medication adjustment at this time. Also spoke to pt's PCP, Dr. Cedeno who explained that pt does not take medications as prescribed and has poor follow up. #HTN Cont home meds: Lisinopril 30 QD, Metroprolol 25 BID #HLD -LDL 185 -Pt only amenable to change in current statin regimen if PMD notified; I spoke to Dr. Cedeno and made her aware of pt's non-adherence. Explained to pt that PMD agreed with our management. -Cont Crestor 40 HS -if still elevated consider Abd U/s or outpatient follow up. #Transaminitis/elevated CK; resolved #Hx of CVA; stable. No residual deficits. #DVT ppx; SQH #FEN -no Iv fluids -monitor lytes -sodium diet Dispo -Cont to monitor on tele Visit type - Emergency Visit Emergency Visit: Yes ED Registration Date: 07/23/18 Care time: The patient presented to the Emergency Department on the above date and was hospitalized for further evaluation of their emergent condition. - New Patient This patient is new to me today: No - Critical Care Critical Care patient: No
--- NOTE | 2018-07-25 10:05 | CON.CARD ---
Consult Consult Specialty:: Cardiology Referred by:: Hospitalist Reason for Consultation:: Cardiac evaluation - History of Present Illness Chief Complaint: Generalized weakness, ? near syncope History of Present Illness: Patient is a 62 year old female with underlying history of HTN, hypercholesterolemia, DM and previous history of cerebrovascular accident with no residual deficit who presents with weakness coming back from [place]. She denies LOC or any trauma. Family was with her when this happened and she did not suffer any injuries. She denies chest pain, SOB or palpitations. She denies paroxysmal nocturnal dyspnea or orthopnea. She denies fever or chills. She denies nausea. vomiting, diarrhea or abdominal pain, She complains of intermittent headache, currently asymptomatic and denies dizziness. Head CT was unremarkable. He was found to be hyperglycemic. Troponin was elevated - History Source History Provided By: Patient, Medical Record Limitations to Obtaining History: No Limitations - Past Medical History [employer]: Yes: CVA Cardio/Vascular: Yes: HTN, Hyperlipdemia Endocrine: Yes: Diabetes Mellitus - Alcohol/Substance Use Hx Alcohol Use: No - Smoking History Smoking history: Never smoked Have you smoked in the past 12 months: No Aproximately how many cigarettes per day: 0 Home Medications - Allergies Allergies/Adverse Reactions: Allergies Allergy/AdvReac Type Severity Reaction Status Date / Time No Known Allergies Allergy Verified 07/23/18 17:56 - Home Medications Home Medications: Ambulatory Orders Metformin HCl [Metformin HCl ER] 1 gm PO BID 06/27/15 Metoprolol Tartrate 25 mg PO BID 06/27/15 Aspirin Coated [Ecotrin -] 81 mg PO DAILY #0 tablet.ec 06/28/15 Atorvastatin Calcium [Lipitor] 20 mg PO HS 07/23/18 Glimepiride [Amaryl -] 2 mg PO ACDIN 07/23/18 Glimepiride [Amaryl -] 4 mg PO AM 07/23/18 Lisinopril [Zestril] 30 mg PO DAILY 07/23/18 Vitamin A Palmitate/B-Carotene [Vit A-Beta Caroten 25,000 Unit] 1 tab PO DAILY 07/23/18 Amlodipine Besylate [Norvasc -] 10 mg PO DAILY 07/24/18 Review of Systems - Review of Systems Constitutional: reports: Weakness. denies: Chills, Fever Eyes: denies: Blurred Vision, Double Vision Cardiovascular: denies: Chest Pain, Palpitations, Shortness of Breath Respiratory: denies: Cough, Hemoptysis, Orthopnea, PND, SOB, SOB on Exertion Gastrointestinal: denies: Abdominal Pain, Constipation, Diarrhea, Melena, Nausea , Rectal Bleeding, Vomiting Genitourinary: denies: Dysuria, Hematuria Musculoskeletal: denies: Back Pain, Joint Pain Neurological: reports: Headache. denies: Dizziness, Seizure, Syncope Vital Signs: Vital Signs Temperature 97.8 F 07/25/18 06:00 Pulse Rate 53 L 07/25/18 06:00 Respiratory Rate 16 07/25/18 06:00 Blood Pressure 125/80 07/25/18 06:00 O2 Sat by Pulse Oximetry (%) 97 07/24/18 20:25 Eyes: Yes: PERRL HENT: Yes: Atraumatic Neck: Yes: Supple Respiratory: Yes: CTA Bilaterally Gastrointestinal: Yes: Normal Bowel Sounds, Soft. No: Tenderness Cardiovascular: Yes: Regular Rate and Rhythm JVD: No Carotid Bruit: No PMI: Non-Displaced Heart Sounds: Yes: S1. No: Gallop Edema: No - Other Data Labs, Other Data: CBC, BMP 07/24/18 06:07 07/24/18 06:05 INR, PTT INR 1.06 (0.83-1.09) 07/23/18 18:00 Troponin, BNP 07/24/18 07/24/18 07/25/18 12:05 20:00 07:15 Troponin I 0.54 H 0.69 H* 0.73 H* Sinus rhythm with nonspecific T abnormality, incomplete RBBB Echo: Report Reviewed (Normal LV systolic function, grade 2 diastolic dysfunction with elevated filling pressure, mild MR) Imaging - Results Chest X-ray: Report Reviewed (Hilar prominence) Cat Scan: Report Reviewed (Head CT) EKG: Report Reviewed Problem List - Problems (1) HTN (hypertension) Code(s): I10 - ESSENTIAL (PRIMARY) HYPERTENSION Qualifiers: Hypertension type: essential hypertension Qualified Code(s): I10 - Essential (primary) hypertension (2) Hypercholesterolemia Code(s): E78.00 - PURE HYPERCHOLESTEROLEMIA, UNSPECIFIED (3) Diabetes mellitus Code(s): E11.9 - TYPE 2 DIABETES MELLITUS WITHOUT COMPLICATIONS Qualifiers: Diabetes mellitus type: type 2 Diabetes mellitus detention insulin use: without detention use Diabetes mellitus complication status: without complication Qualified Code(s): E11.9 - Type 2 diabetes mellitus without complications (4) Cerebrovascular disease Code(s): I67.9 - CEREBROVASCULAR DISEASE, UNSPECIFIED (5) Hyperglycemia Code(s): R73.9 - HYPERGLYCEMIA, UNSPECIFIED (6) Near syncope Code(s): R55 - SYNCOPE AND COLLAPSE Assessment/Plan 1. Elevated troponin, demand ischemia, suspect CAD 2. HTN 3. Hypercholesterolemia 4. DM 5. Chest hilar prominence 6. History of cerebrovascular disease (CVA) with no residual deficit 7. Grade 2 diastolic dysfunction 8. Abnormal LFT PLAN: 1. Trend troponin to document peak 2. Continue Metoprolol Tartrate 25 mg BID, Lisinopril 30 mg QD, Rosuvastatin 40 mg QHS with caution and monitor LFT 3. ASA 81 mg QD 4. Echocardiography was reviewed 5. CT chest pending Further plans are to follow Jarad Palacio MD
[2018-07-25] MEDS ORDERED: LISINOPRIL 20 MG TABLET (FP) ONE (10:14)
[2018-07-25] MEDS ORDERED: LISINOPRIL 10 MG TABLET (FP) ONE (10:14)
[2018-07-25] MEDS: METOPROLOL TARTRATE 25 MG TABLET (FP) PO SCH ×2 (10:24→21:29)
[2018-07-25] MEDS: LISINOPRIL 20 MG, LISINOPRIL 10 MG PO SCH (10:24)
[2018-07-25] MEDS: ASPIRIN COATED 81 MG TABLET.EC PO SCH (10:25)
--- NOTE | 2018-07-25 12:03 | EKG ---
Test Reason : Blood Pressure : / mmHG Vent. Rate : 052 BPM Atrial Rate : 052 BPM P-R Int : 182 ms QRS Dur : 098 ms QT Int : 450 ms P-R-T Axes : 048 -39 -17 degrees QTc Int : 418 ms POOR DATA QUALITY, INTERPRETATION MAY BE ADVERSELY AFFECTED SINUS BRADYCARDIA LEFT AXIS DEVIATION VOLTAGE CRITERIA FOR LEFT VENTRICULAR HYPERTROPHY NONSPECIFIC T WAVE ABNORMALITY ABNORMAL ECG Confirmed by Collin Cassidy MD ([id number]) on 07/25/2018 12:02:37 PM Referred By: Confirmed By:Collin Cassidy MD
--- NOTE | 2018-07-25 12:14 | PN ---
Teaching Attending Note Name of Resident: Yamileth Palm ATTENDING PHYSICIAN STATEMENT I saw and evaluated the patient. I reviewed the resident's note and discussed the case with the resident. I agree with the resident's findings and plan as documented. SUBJECTIVE: Feels well - no further episodes of generalized. No preceding CP/ palpitations. No LOC. OBJECTIVE: Afebrile, Hemodynamically Stable. Last Vital Signs Temp Pulse Resp BP Pulse Ox 97.8 F 53 L 16 125/80 97 07/25/18 06:00 07/25/18 06:00 07/25/18 06:00 07/25/18 06:00 07/24/18 20:25 HEENT- Atraumatic, Normocephalic. Heart - S1, S2, RRR Lungs - clear to auscultation Abdomen - soft, non-tender. Bowel Sounds normal. Extremities - no edema, no calf tenderness Laboratory Results - last 24 hr 07/24/18 07/24/18 07/24/18 12:05 17:04 20:00 POC Glucometer 265 Troponin I 0.54 H 0.69 H* 07/24/18 07/25/18 07/25/18 22:20 05:18 07:15 POC Glucometer 302 165 Troponin I 0.73 H* 07/25/18 11:04 POC Glucometer 305 Troponin I Current Medications Generic Name Dose Route Start Last Admin Trade Name Freq PRN Reason Stop Dose Admin Aspirin 81 mg 07/24/18 10:00 07/25/18 10:25 Ecotrin - PO 81 mg DAILY [facility] Administration Heparin Sodium (Porcine) 5,000 unit 07/24/18 06:00 07/25/18 06:20 Heparin - SQ 5,000 unit TID [facility] Administration Insulin Aspart 1 vial 07/24/18 07:00 07/25/18 11:11 Novolog Vial Sliding Scale - SQ 8 units ACHS [facility] Administration Protocol Lisinopril 20 mg/ Lisinopril 30 mg 07/24/18 10:00 07/25/18 10:24 10 mg PO 30 mg DAILY [facility] Administration Metoprolol Tartrate 25 mg 07/24/18 10:00 07/25/18 10:24 Lopressor - PO 25 mg BID [facility] Administration Rosuvastatin Calcium 40 mg 07/24/18 22:30 07/24/18 22:38 Crestor - PO Not Given HS [facility] ASSESSMENT AND PLAN: 62 year old female with history of HTN, HLD, DM 2, HX of CVA, who presented to the ED after experiencing generalized weakness with a sensation that she was going to pass out, found to have elevated troponin. 1. Pre-Syncope - sec to hyperglycemia versus hypertensive urgency. CT Head - no acute intracranial pathology BP normalized (171/100 on presentation) No telemonitoring events. Troponins rising, denies chest pain. BP normalized. 2. Troponin Egression, now up to 0.73 (0.05 on arrival), etiology unclear, possibly sec to demand due to hypertensive urgency. Echo - normal LV function, EF 65%, Grade I Diastolic Dysfunction Evaluated by Cardiology - no evidence of ACS - for further trending of Troponins. 3. RUL Lung Mass 3.6cm x 3.4cm - etiology unclear. Pulmonary and Oncology consults requested. No respiratory compromise at this time. 4. HTN - BP controlled on Lisinopril and Metoprolol. 5. DM 2- uncontrolled. A1c 11.5. Declines initiation on insulin given severely uncontrolled DM. Currently on Sliding scale. For resumption of oral medications on discharge- for up-titration by PCP. 6. HLD - [id number], TGs 243, declines intensification of statin currently. 7. Hx CVA - no residual deficits. Continue Aspirin and Statin. DVT Px - Heparin SQ
--- NOTE | 2018-07-25 12:21 | CON.PULM ---
Consult Consult Specialty:: PULMONARY Referred by:: Dr Altamirano Reason for Consultation:: lung mass - History of Present Illness Chief Complaint: near syncope History of Present Illness: 62yo female with h/o HTN, DM, hyperlipidemia, h/o CVA who was admitted after near syncopal episode. During the work up, was noted to have right hilar prominence on CXR and subsequent CT chest showing a 3.4 x 3.6cm RUL mass. She denies any shortness of breath, chronic cough or wheezing. No chest pain or palpitations. No fevers, chills or sweats. No unintentional weight loss. She is a never smoker, no history of cancers in the family. 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 Cardio/Vascular: Yes: HTN, Hyperlipdemia Endocrine: Yes: Diabetes Mellitus - Alcohol/Substance Use Hx Alcohol Use: No - Smoking History Smoking history: Never smoked Have you smoked in the past 12 months: No Aproximately how many cigarettes per day: 0 Home Medications - Allergies Allergies/Adverse Reactions: Allergies Allergy/AdvReac Type Severity Reaction Status Date / Time No Known Allergies Allergy Verified 07/23/18 17:56 - Home Medications Home Medications: Ambulatory Orders Metformin HCl [Metformin HCl ER] 1 gm PO BID 06/27/15 Metoprolol Tartrate 25 mg PO BID 06/27/15 Aspirin Coated [Ecotrin -] 81 mg PO DAILY #0 tablet.ec 06/28/15 Atorvastatin Calcium [Lipitor] 20 mg PO HS 07/23/18 Glimepiride [Amaryl -] 2 mg PO ACDIN 07/23/18 Glimepiride [Amaryl -] 4 mg PO AM 07/23/18 Lisinopril [Zestril] 30 mg PO DAILY 07/23/18 Vitamin A Palmitate/B-Carotene [Vit A-Beta Caroten 25,000 Unit] 1 tab PO DAILY 07/23/18 Amlodipine Besylate [Norvasc -] 10 mg PO DAILY 07/24/18 Review of Systems - Review of Systems Constitutional: denies: Chills, Fever Eyes: denies: Recent Change in Vision HENT: denies: Nasal Congestion, Throat Pain Neck: denies: Stiffness, Tenderness Cardiovascular: denies: Chest Pain, Shortness of Breath Respiratory: denies: Cough, Hemoptysis, SOB, SOB on Exertion, Wheezing Gastrointestinal: denies: Abdominal Pain, Nausea, Vomiting Genitourinary: denies: Dysuria, Hematuria Neurological: reports: Dizziness Endocrine: denies: Unexplained Weight Loss Physical Exam Vital Sings: Vital Signs Temperature 97.8 F 07/25/18 06:00 Pulse Rate 53 L 07/25/18 06:00 Respiratory Rate 16 07/25/18 06:00 Blood Pressure 125/80 07/25/18 06:00 O2 Sat by Pulse Oximetry (%) 97 07/24/18 20:25 Constitutional: Yes: No Distress, Calm Eyes: Yes: Conjunctiva Clear, EOM Intact HENT: Yes: Atraumatic, Normocephalic Neck: Yes: Supple, Trachea Midline. No: Lymphadenopathy Cardiovascular: Yes: Regular Rate and Rhythm Respiratory: Yes: Regular, CTA Bilaterally ...Clubbing: No Gastrointestinal: Yes: Normal Bowel Sounds, Soft. 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 insulin use: without reel system operator use Diabetes mellitus complication status: without complication Qualified Code(s): E11.9 - Type 2 diabetes mellitus without complications (3) HTN (hypertension) Code(s): I10 - ESSENTIAL (PRIMARY) HYPERTENSION Qualifiers: Hypertension type: essential hypertension Qualified Code(s): I10 - Essential (primary) hypertension (4) Hypercholesterolemia Code(s): E78.00 - PURE HYPERCHOLESTEROLEMIA, UNSPECIFIED (5) Near syncope Code(s): R55 - SYNCOPE AND COLLAPSE Assessment/Plan RUL Mass Near Syncope HTN DM Hyperlipidemia h/o CVA - offered bronchoscopy with biopsy but pt would like to defer at this time - - pt without risk factors and the mass appears well circumscribed, will need outpt PET scan to determine avidity of mass and would strongly recommend tissue biopsy if PET positive - left card with patient and strongly encouraged close follow up in the next 1- 2 weeks - also discussed age appropriate cancer screening, she states she is due for her mammogram but has not had a screening colonoscopy or recent pap smears Thank you for this consult John Cabral MD
--- NOTE | 2018-07-25 19:03 | CONSULT ---
Consultation: REQUESTING PROVIDER: CONSULT REQUEST: We have been asked to medically evaluate this patient for (Hem/ Onc). HISTORY OF PRESENT ILLNESS: The patient is a 62 year old female with a PMH of HTN, dyslipidemia, CVS ( hemorrhagic stroke) 3 years ago, that was admitted for presyncope. She was also found to have elevated troponin, hyperglicemia and BP. Hem/Onc was consulted for evaluation of RUL mass discovered on CT chest. Today when I saw the patient she didn't have any complaints. She states that her legs gave up when she was outside with her daughter. She denies chest pain, dizziness, headache, hitting her head, weakness, LOC, cough, weight loss, fever , chills. She was never a smoker, denies passive smoking, TB, sick contacts. She gets screening mammograms but no colonoscopy. 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 OF SYSTEMS: CONSTITUTIONAL: Absent: fever, chills, diaphoresis, generalized weakness, malaise, loss of appetite, weight change HEENT: Absent: rhinorrhea, nasal congestion, throat pain, throat swelling, CARDIOVASCULAR: Absent: chest pain, syncope, palpitations, irregular heart rate, lightheadedness , peripheral edema RESPIRATORY: Absent: cough, shortness of breath, dyspnea with exertion, orthopnea, wheezing, stridor, hemoptysis GASTROINTESTINAL: Absent: abdominal pain, abdominal distension, nausea, vomiting, diarrhea, constipation, melena, hematochezia GENITOURINARY: Absent: dysuria, frequency, urgency, hesitancy, hematuria, flank pain, genital pain MUSCULOSKELETAL: Absent: myalgia, arthralgia, joint swelling, back pain, neck pain SKIN: Absent: rash, itching, pallor HEMATOLOGIC/IMMUNOLOGIC: Absent: easy bleeding, easy bruising, lymphadenopathy, frequent infections ENDOCRINE: Absent: unexplained weight gain, unexplained weight loss, heat intolerance, cold intolerance NEUROLOGIC: Absent: headache, focal weakness or paresthesias, dizziness, unsteady gait, seizure, mental status changes PSYCHIATRIC: Absent: anxiety, depression, PHYSICAL EXAMINATION Vital Signs - 24 hr 07/24/18 07/25/18 07/25/18 20:25 02:00 06:00 Temperature 98.1 F 98.0 F 97.8 F Pulse Rate 71 54 L 53 L Respiratory 16 18 16 Rate Blood Pressure 150/98 133/88 125/80 O2 Sat by Pulse 97 Oximetry (%) 07/25/18 07/25/18 07/25/18 10:00 13:53 15:03 Temperature 97.9 F 98.1 F Pulse Rate 57 L 65 Respiratory 18 14 Rate Blood Pressure 149/83 147/98 O2 Sat by Pulse 98 Oximetry (%) 07/25/18 18:00 Temperature 97.9 F Pulse Rate 61 Respiratory 18 Rate Blood Pressure 145/75 O2 Sat by Pulse Oximetry (%) GENERAL: Awake, alert, and fully oriented, in no acute distress. HEAD: Normal with no signs of trauma. EYES: Extraocular movements intact, PERRL, sclera anicteric, conjunctiva clear. EARS, NOSE, THROAT: Ears normal, nares patent, oropharynx clear without exudates. Moist mucous membranes. NECK: Normal range of motion, supple without lymphadenopathy, JVD, or masses. LUNGS: Breath sounds equal, clear to auscultation bilaterally. No wheezes, and no crackles. No accessory muscle use. HEART: Regular rate and rhythm, normal S1 and S2 without murmur, rub or gallop. ABDOMEN: Soft, nontender, not distended, normoactive bowel sounds, no guarding, no rebound, no masses. No hepatomegaly or splenomegaly. MUSCULOSKELETAL: Normal range of motion at all joints. No CVA tenderness. UPPER EXTREMITIES: No peripheral edema. LOWER EXTREMITIES: 2+ pulses, warm. No calf tenderness. No peripheral edema. NEUROLOGICAL: Non focal. Normal speech. PSYCHIATRIC: Cooperative. Good eye contact. Appropriate mood and affect. SKIN: Warm, dry, normal turgor, no rashes. BREAST: symmetric, no nipple discharge, no skin rash, no masses appreciated Laboratory Results - last 24 hr 07/24/18 07/24/18 07/25/18 20:00 22:20 05:18 POC Glucometer 302 165 Troponin I 0.69 H* 07/25/18 07/25/18 07/25/18 07:15 11:04 13:38 POC Glucometer 305 Troponin I 0.73 H* 0.69 H* 07/25/18 17:22 POC Glucometer 223 Troponin I Active Medications Generic Name Dose Route Start Last Admin Trade Name Freq PRN Reason Stop Dose Admin Aspirin 81 mg 07/24/18 10:00 07/25/18 10:25 Ecotrin - PO 81 mg DAILY MATT Administration Heparin Sodium (Porcine) 5,000 unit 07/24/18 06:00 07/25/18 15:13 Heparin - SQ 5,000 unit TID MATT Administration Insulin Aspart 1 vial 07/24/18 07:00 07/25/18 17:23 Novolog Vial Sliding Scale - SQ 4 units ACHS MATT Administration Protocol Lisinopril 20 mg/ Lisinopril 30 mg 07/24/18 10:00 07/25/18 10:24 10 mg PO 30 mg DAILY MATT Administration Metoprolol Tartrate 25 mg 07/24/18 10:00 07/25/18 10:24 Lopressor - PO 25 mg BID MATT Administration Rosuvastatin Calcium 40 mg 07/24/18 22:30 07/24/18 22:38 Crestor - PO Not Given HS MATT ASSESSMENT/PLAN: The patient is a 62 year old female with a PMH of HTN, dyslipidemia, CVS ( hemorrhagic stroke) 3 years ago, that was admitted for presyncope. Hem/Onc was consulted for evaluation of RUL mass discovered on CT chest. Assesment: RUL Mass Near Syncope HTN DM Hyperlipidemia h/o CVA transaminitis troponinemia Plan: The patient denies smoking history, it may be adenocarcinoma but is round and centrally located. We recommend to obtain PET scan and follow with tissue biopsy as outpatient. Pulmonary was consulted. Dispo: We will continue to follow the patient. Thank you for this consultative opportunity. 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: without predatory animal exterminator use Diabetes mellitus complication status: without complication Qualified Code(s): E11.9 - Type 2 diabetes mellitus without complications (3) HTN (hypertension) Code(s): I10 - ESSENTIAL (PRIMARY) HYPERTENSION Qualifiers: Hypertension type: essential hypertension Qualified Code(s): I10 - Essential (primary) hypertension (4) Lung mass Code(s): R91.8 - OTHER NONSPECIFIC ABNORMAL FINDING OF LUNG FIELD (5) Hyperglycemia Code(s): R73.9 - HYPERGLYCEMIA, UNSPECIFIED (6) Hypertensive urgency Code(s): I10 - ESSENTIAL (PRIMARY) HYPERTENSION Visit type - Emergency Visit Emergency Visit: Yes ED Registration Date: 07/23/18 Care time: The patient presented to the Emergency Department on the above date and was hospitalized for further evaluation of their emergent condition. - New Patient This patient is new to me today: Yes Date on this admission: 07/25/18 - Critical Care Critical Care patient: No
[2018-07-25] MEDS: ROSUVASTATIN CA 20 MG TABLET (FP) PO SCH (21:29)
[2018-07-26] MEDS: HEPARIN NA (PORCINE) 5,000 UNITS/ML 1ML VIAL SQ SCH (06:10)
[2018-07-26] MEDS: INSULIN SLIDING SCALE (NOVOLOG) 1 VIAL SQ SCH ×2 (06:10→11:50)
--- NOTE | 2018-07-26 08:03 | PN ---
Teaching Attending Note Name of Resident: Janet Eisenberg ATTENDING PHYSICIAN STATEMENT I saw and evaluated the patient. I reviewed the resident's note and discussed the case with the resident. I agree with the resident's findings and plan as documented. SUBJECTIVE: Patient seen and examined Presented with near syncope. Additional problems of hypertension , DM(II) pooorly controlled , hyperlipedemia. Past history of stroke with surgery and evacuation of hemorrhage. FH negative for malignancy; positive for DM and HBP SH- non -smoker, born in [place], no industrial intoxicants or exposures, non drinker , no illicit drugs ROS - occasional right frontal headaches, post nasal drip, no epistaxis, dysphagia, SOB,ARANA, fevers, sweats, night sweats, weight lss, GI symptoms, dysuria, vaginal bleeding Health maintenance: never had colonoscopy; no recent PAP, mammography- one year earlier Last Vital Signs Temp Pulse Resp BP Pulse Ox 97.4 F L 49 L 16 131/75 95 07/26/18 05:55 07/26/18 05:55 07/26/18 05:55 07/26/18 05:55 07/25/18 22:05 HEENT: ASH, EOM Intact Oropharynx: No thrush, No mucositis, partial Neck: Supple Nodes: Without adenopathy Breasts: Without masses Cor: RSR, No murmurs, No gallops Lungs: Clear to P&A Abd: Soft, Normal bowel sounds, No organomegaly Ext:No significant edema Skin: No rashes, Integument intact CBC, BMP 07/24/18 06:07 07/24/18 06:05 Current Medications Generic Name Dose Route Start Last Admin Trade Name Freq PRN Reason Stop Dose Admin Aspirin 81 mg 07/24/18 10:00 07/25/18 10:25 Ecotrin - PO 81 mg DAILY MATT Administration Heparin Sodium (Porcine) 5,000 unit 07/24/18 06:00 07/26/18 06:10 Heparin - SQ 5,000 unit TID MATT Administration Insulin Aspart 1 vial 07/24/18 07:00 07/26/18 06:10 Novolog Vial Sliding Scale - SQ 4 units ACHS MATT Administration Protocol Lisinopril 20 mg/ Lisinopril 30 mg 07/24/18 10:00 07/25/18 10:24 10 mg PO 30 mg DAILY MATT Administration Metoprolol Tartrate 25 mg 07/24/18 10:00 07/25/18 21:29 Lopressor - PO 25 mg BID MATT Administration Rosuvastatin Calcium 40 mg 07/24/18 22:30 07/25/18 21:29 Crestor - PO 40 mg HS MATT Administration OBJECTIVE: CXR, CT scan-- 3.6 x 3.4 cm RUL mass Impression: RUL mass found as incidental finding on chest x-ray and CT during admission for near syncope Will need tissue diagnosis and PET if abnormal. Additional problems of DM (II) HBP HPL Hx of CVA in past. ASSESSMENT AND PLAN:
[2018-07-26] MEDS ORDERED: LISINOPRIL 10 MG TABLET (FP) ONE (08:35)
[2018-07-26] MEDS ORDERED: LISINOPRIL 20 MG TABLET (FP) ONE (08:35)
[2018-07-26] MEDS: LISINOPRIL 20 MG, LISINOPRIL 10 MG PO SCH (09:11)
[2018-07-26] MEDS: METOPROLOL TARTRATE 25 MG TABLET (FP) PO SCH (09:11)
[2018-07-26] MEDS: ASPIRIN COATED 81 MG TABLET.EC PO SCH (09:11)
--- NOTE | 2018-07-26 11:31 | PN ---
Progress Note, Physician History of Present Illness: Denies recurrent near or true syncope, chest pain or dyspnea. - Current Medication List Current Medications: Active Medications Aspirin (Ecotrin -) 81 mg PO DAILY [facility] Last Admin: 07/26/18 09:11 Dose: 81 mg Heparin Sodium (Porcine) (Heparin -) 5,000 unit SQ TID [facility] Last Admin: 07/26/18 06:10 Dose: 5,000 unit Insulin Aspart (Novolog Vial Sliding Scale -) 1 vial SQ ACHS [facility]; Protocol Last Admin: 07/26/18 06:10 Dose: 4 units Lisinopril 20 mg/ Lisinopril (10 mg) 30 mg PO DAILY [facility] Last Admin: 07/26/18 09:11 Dose: 30 mg Metoprolol Tartrate (Lopressor -) 25 mg PO BID [facility] Last Admin: 07/26/18 09:11 Dose: 25 mg Rosuvastatin Calcium (Crestor -) 40 mg PO HS [facility] Last Admin: 07/25/18 21:29 Dose: 40 mg - Objective Vital Signs: Vital Signs Temperature 97.9 F 07/26/18 10:43 Pulse Rate 68 07/26/18 10:43 Respiratory Rate 16 07/26/18 10:43 Blood Pressure 154/88 07/26/18 10:43 O2 Sat by Pulse Oximetry (%) 95 07/26/18 10:43 Constitutional: Yes: No Distress, Calm Neck: Yes: Supple Cardiovascular: Yes: Regular Rate and Rhythm Respiratory: Yes: Regular, CTA Bilaterally Gastrointestinal: Yes: Normal Bowel Sounds, Soft Edema: No Labs: CBC, BMP 07/24/18 06:07 07/24/18 06:05 INR, PTT INR 1.06 (0.83-1.09) 07/23/18 18:00 - ....Imaging EKG: Report Reviewed (Tele: NSR) Problem List - Problems (1) Diastolic dysfunction without heart failure Code(s): I51.89 - OTHER ILL-DEFINED HEART DISEASES (2) Demand ischemia Code(s): I24.8 - OTHER FORMS OF ACUTE ISCHEMIC HEART DISEASE (3) Lung mass Code(s): R91.8 - OTHER NONSPECIFIC ABNORMAL FINDING OF LUNG FIELD (4) Diabetes mellitus Code(s): E11.9 - TYPE 2 DIABETES MELLITUS WITHOUT COMPLICATIONS Qualifiers: Diabetes mellitus type: type 2 Diabetes mellitus longterm insulin use: without intermediate designer use Diabetes mellitus complication status: without complication Qualified Code(s): E11.9 - Type 2 diabetes mellitus without complications (5) HTN (hypertension) Code(s): I10 - ESSENTIAL (PRIMARY) HYPERTENSION Qualifiers: Hypertension type: essential hypertension Qualified Code(s): I10 - Essential (primary) hypertension (6) Hypercholesterolemia Code(s): E78.00 - PURE HYPERCHOLESTEROLEMIA, UNSPECIFIED (7) Hypertensive urgency Code(s): I10 - ESSENTIAL (PRIMARY) HYPERTENSION (8) Near syncope Code(s): R55 - SYNCOPE AND COLLAPSE Assessment/Plan 07/24/2018 Echo: Normal LV and RV size and fxn LVEF 65-70%, grade II diastolic dysfunction, c/w elevated LA pressure, mild MR 1. Elevated troponin, demand ischemia, suspect CAD 2. HTN, BP not at goal 3. Hypercholesterolemia 4. DM not at goal control Ha1c 11.5% 5. RUL mass 6. History of cerebrovascular disease (CVA) with no residual deficit 7. Grade 2 diastolic dysfunction 8. Abnormal LFT PLAN: 1. Troponins are downtrending 2. Continue Metoprolol Tartrate 25 mg BID, increase Lisinopril 40 mg QD, Rosuvastatin 40 mg QHS with caution and monitor LFT 3. ASA 81 mg QD 4. Echocardiography was reviewed, stress testing as outpatient to r/o ischemia 5. Plan for outpt PET scan to determine avidity of mass and would strongly recommend tissue biopsy if PET positive, patient declined bronchoscopy with biopsy at this time 6. F/u in cardiology office after d/c
[2018-07-26] MEDS ORDERED: LISINOPRIL 20 MG TABLET (FP) PO SCH (11:45)
--- NOTE | 2018-07-26 11:47 | PN ---
Teaching Attending Note Name of Resident: Yamileth Palm ATTENDING PHYSICIAN STATEMENT I saw and evaluated the patient. I reviewed the resident's note and discussed the case with the resident. I agree with the resident's findings and plan as documented. SUBJECTIVE: Feels well - no further episodes of generalized weakness. Nom syncope. No preceding CP/palpitations. No LOC. OBJECTIVE: Afebrile, Hemodynamically Stable. Last Vital Signs Temp Pulse Resp BP Pulse Ox 97.9 F 68 16 154/88 95 07/26/18 10:43 07/26/18 10:43 07/26/18 10:43 07/26/18 10:43 07/26/18 10:43 Heart - S1, S2, RRR Lungs - clear to auscultation Abdomen - soft, non-tender. Bowel Sounds normal. Extremities - no edema, no calf tenderness Laboratory Results - last 24 hr 07/25/18 07/25/18 07/25/18 13:38 17:22 21:26 POC Glucometer 223 305 Troponin I 0.69 H* 07/26/18 07/26/18 05:51 10:15 POC Glucometer 209 Troponin I 0.54 H Current Medications Generic Name Dose Route Start Last Admin Trade Name Freq PRN Reason Stop Dose Admin Aspirin 81 mg 07/24/18 10:00 07/26/18 09:11 Ecotrin - PO 81 mg DAILY MATT Administration Heparin Sodium (Porcine) 5,000 unit 07/24/18 06:00 07/26/18 06:10 Heparin - SQ 5,000 unit TID MATT Administration Insulin Aspart 1 vial 07/24/18 07:00 07/26/18 06:10 Novolog Vial Sliding Scale - SQ 4 units ACHS MATT Administration Protocol Lisinopril 40 mg 07/26/18 11:45 Prinivil PO DAILY MATT Metoprolol Tartrate 25 mg 07/24/18 10:00 07/26/18 09:11 Lopressor - PO 25 mg BID MATT Administration Rosuvastatin Calcium 40 mg 07/24/18 22:30 07/25/18 21:29 Crestor - PO 40 mg HS MATT Administration ASSESSMENT AND PLAN: 62 year old female with history of HTN, HLD, DM 2, HX of CVA, who presented to the ED after experiencing generalized weakness with a sensation that she was going to pass out, found to have elevated troponin. 1. Pre-Syncope - sec to hyperglycemia versus hypertensive urgency. CT Head - no acute intracranial pathology BP normalized (171/100 on presentation) No telemonitoring events. 2. Troponin Egression, etiology unclear, possibly sec to demand due to hypertensive urgency. Echo - normal LV function, EF 65%, Grade I Diastolic Dysfunction Troponin peak 0.79, denies chest pain - evaluated by Cardiology - no evidence of ACS, medication optimized, recommend out-patient stress testing. 3. RUL Lung Mass 3.6cm x 3.4cm - etiology unclear. Pulmonary and Oncology consults appreciated. No respiratory compromise at this time. For out-patient PET and Biopsy. Pulm/Onc follow ups. 4. HTN - BP controlled on Lisinopril and Metoprolol. 5. DM 2- uncontrolled. A1c 11.5. Declines initiation on insulin given severely uncontrolled DM. Currently on Sliding scale. For resumption of oral medications on discharge- for up-titration by PCP. 6. HLD - [id number], TGs 243, on Crestor, declines intensification of statin currently. 7. Hx CVA - no residual deficits. Continue Aspirin and Statin. Medical Stable for discharge with Pulm, Cardio, and Oncology follow ups.
--- NOTE | 2018-07-26 12:24 | HP ---
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 Cardiovascular: Yes: HTN, Hyperlipdemia Endocrine: Yes: Diabetes Mellitus - Smoking History Smoking history: Never smoked Have you smoked in the past 12 months: No Aproximately how many cigarettes per day: 0 - Alcohol/Substance Use Hx Alcohol Use: No Home Medications - Allergies Allergies/Adverse Reactions: Allergies Allergy/AdvReac Type Severity Reaction Status Date / Time No Known Allergies Allergy Verified 07/23/18 17:56 - Home Medications Home Medications: Ambulatory Orders Metformin HCl [Metformin HCl ER] 1 gm PO BID 06/27/15 Metoprolol Tartrate 25 mg PO BID 06/27/15 Aspirin Coated [Ecotrin -] 81 mg PO DAILY #0 tablet.ec 06/28/15 Glimepiride [Amaryl -] 2 mg PO ACDIN 07/23/18 Glimepiride [Glimepiride -] 4 mg PO AM 07/23/18 Lisinopril [Zestril] 30 mg PO DAILY 07/23/18 Vitamin A Palmitate/B-Carotene [Vit A-Beta Caroten 25,000 Unit] 1 tab PO DAILY 07/23/18 Amlodipine Besylate [Norvasc -] 10 mg PO DAILY 07/24/18 Rosuvastatin [Crestor -] 40 mg PO HS #30 tablet 07/26/18 Physical Examination Vital Signs: Vital Signs Temperature 97.9 F 07/26/18 10:43 Pulse Rate 68 07/26/18 10:43 Respiratory Rate 16 07/26/18 10:43 Blood Pressure 154/88 07/26/18 10:43 O2 Sat by Pulse Oximetry (%) 95 07/26/18 10:43 Constitutional: Yes: Well Nourished. No: Anxious (e]j]ewit) Eyes: Yes: Cataracts, Diplopia. No: WNL HENT: Yes: WNL, Atraumatic, Normocephalic, Drooling, Epistaxis, Hoarseness, Nasal Congestion, Pharyngeal Erythema, Rhinnorhea, Thrush, Tonsillar Exudate, Other Neck: No: WNL, Supple, Trachea Midline, Decreased ROM, Lymphadenopathy, Rigid, Tenderness, Thyromegaly, Other Cardiovascular: Yes: WNL, Regular Rate and Rhythm. No: Bradycardia, Tachycardia , Pulse Irregular, Bruit, JVD, Gallop, Murmur, Rub, S1, S2, S3, S4, Varicosities , Other Gastrointestinal: Yes: WNL, Normal Bowel Sounds, Hyperactive Bowel Sounds Labs: CBC, BMP 07/24/18 06:07 07/24/18 06:05 Visit type - Emergency Visit Emergency Visit: No - New Patient This patient is new to me today: Yes Date on this admission: 07/26/18 - Critical Care Critical Care patient: Yes Total Critical Care Time (in minutes): 44 Critical Care Statement: The care of this patient involved high complexity decision making to prevent further life threatening deterioration of the patient 's condition and/or to evaluate & treat vital organ system(s) failure or risk of failure.
--- NOTE | 2018-07-26 12:55 | DS ---
Physical Exam: SUBJECTIVE: Patient seen and examined at bedside. No acute events overnight. OBJECTIVE: Vital Signs Period Temp Pulse Resp BP Sys/Alaniz Pulse Ox Last 24 Hr 97.4 F-98.1 F 49-68 14-18 131-154/75-98 95-98 PHYSICAL EXAM GENERAL: AAOx3. NAD. HEENT: AT/NC. EOMI. OLIVER. Moist mucus membranes. CV: RRR. Normal S1, S2. No murmurs noted. Pulm: CTA B/L. No wheezes, rhonchi, rales noted. Symmetric chest rise. Abd: Soft, NT/ND. +BS in all 4 Qs. Ext: No peripheral edema noted. B/l LE sensation intact. LABS Laboratory Results - last 24 hr 07/25/18 07/25/18 07/25/18 13:38 17:22 21:26 POC Glucometer 223 305 Troponin I 0.69 H* 07/26/18 07/26/18 07/26/18 05:51 10:15 11:47 POC Glucometer 209 263 Troponin I 0.54 H HOSPITAL COURSE: Date of Admission:07/23/18 IMAGING: * Head CT: neg * Echo: No regional wall motion abn. EF 65-70%. Diastolic dysfxn, Grade II, c/w elevated L atrial pressure. Mild mitral annular calcification, mild mitral regurgitation. * CXR: New R hilar prominence; CT recommended. * Chest CT: Low attenuation RUL mass, medially measuring 3.6 x 3.4 cm abutting R lateral margin of mediastinum at level of ascending aorta. 5 mm nodule in L lateral costophrenic angle unchanged since prior exam. 62 yo F with a PMHx of HTN, HLD, DM, CVA (3 years ago), presented to the ED because of weakness admitted for syncope workup. Labs showed elevated trops, however EKG did no show acute ischemic changes. Head CT was done that was unremarkable. Echo showed EF 65-70% with diastolic dysfunction Grade II, mild annular calcification and mild mitral regurgitation. Pt was monitored on telemetry and seen by the digital media representative. Upon cardiac eval, pt was found to have elevated trops likely 2/2 demand ischemia with recommendation to have stress testing done as outpatient following discharge. CXR showed R hilar prominence after which CT scan was done that showed a mass in the right upper lobe. As a result, pt was seen by pulm with recommendation to obtain a bronchoscopy in which the pt had deferred at this time. Pt was given recommendation to follow up with pulm as an outpatient to obtain a PET scan and possible tissue biopsy. Additionally, she was seen by oncology for the mass with recommendation for outpatient follow up. Date of Discharge: 07/26/18 Discharge Summary Reason For Visit: SYNCOPE Current Active Problems Demand ischemia (Acute) Diastolic dysfunction without heart failure (Acute) Lung mass (Acute) Diabetes mellitus (Chronic) HTN (hypertension) (Chronic) Hypercholesterolemia (Chronic) Condition: Improved - Instructions Diet, Activity, Other Instructions: You were seen in the hospital after a near fainting episode. An echocardiogram was done that showed abnormal function of the heart, but no acute condition was found. Additionally, you were found to have abnormally high heart enzymes, which improved. You were seen by a digital media representative and placed on cardiac monitoring. Throughout your hospital stay, you did not have any heart symptoms. You also had a CT scan done of your head which was normal. A CT scan of your chest was done that was noted show a mass in the right upper lobe of your lung. You were evaluated by both the sales project engineer and oncologist with recommendation to obtain a PET scan, possible tissue biopsy of this mass as an outpatient. You may also need a bronchoscopy to further assess this mass in the future. MEDICAL RECOMMENDATIONS Please STOP taking Atorvastatin. You may START taking Crestor 40 mg once a day. Please START taking Aspirin 81 mg once a day by mouth. You may continue taking the rest of your home medications as prescribed. FOLLOW UP Please follow up with your primary care physician, Dr. Bland, within 1 week. You will need to optimize your diabetic medications with your PCP as your Hemoglobin A1c was found to be abnormally high, 11.5. Please follow up with your digital media representative, Dr. Palacio, within 1 week. Please follow up with your oncologist, Dr. Smith. Please follow up with your sales project engineer, Dr. Cabral as an outpatient. You will need to obtain a PET scan and a bronchoscopy. If you experience another fainting episode, seizures, persistent chest pain, shortness of breath or other associated symptoms, please proceed to your nearest emergency room immediately. Referrals: Dom Bland MD [Staff Physician] - 1 Week Jarad Palacio MD [Staff Physician] - 1 Week Kojo Smith MD [Staff Physician] - 1 Week John Cabral MD, MD [Staff Physician] - 1 Week Disposition: HOME - Home Medications Comprehensive Discharge Medication List: Ambulatory Orders Metformin HCl [Metformin HCl ER] 1 gm PO BID 06/27/15 Metoprolol Tartrate 25 mg PO BID 06/27/15 Aspirin Coated [Ecotrin -] 81 mg PO DAILY #0 tablet.ec 06/28/15 Glimepiride [Amaryl -] 2 mg PO ACDIN 07/23/18 Glimepiride [Glimepiride -] 4 mg PO AM 07/23/18 Lisinopril [Zestril] 30 mg PO DAILY 07/23/18 Vitamin A Palmitate/B-Carotene [Vit A-Beta Caroten 25,000 Unit] 1 tab PO DAILY 07/23/18 Amlodipine Besylate [Norvasc -] 10 mg PO DAILY 07/24/18 Rosuvastatin [Crestor -] 40 mg PO HS #30 tablet 07/26/18
[2018-07-26 14:28] VITALS: BP 152/92; PULSE 54; TEMP 97.8
== END 2018-07-26 15:21 | disposition home or self-care (01) ==
LOC: JER 17:32 → JERBED 21:22 → J4S 07-24 16:43
PROVIDERS: ADMIT Internal Medicine
PROC: 3E033NZ Introduction of Analgesics, Hypnotics, Sedatives into Peripheral Vein, Percutaneous Approach (ICD-10-PCS; principal; 2018-07-23)
PROC: 3E0337Z Introduction of Electrolytic and Water Balance Substance into Peripheral Vein, Percutaneous Approach (ICD-10-PCS; 2018-07-23)
PROC: 3E013VG Introduction of Insulin into Subcutaneous Tissue, Percutaneous Approach (ICD-10-PCS; 2018-07-23)
PROC: 3E013GC Introduction of Other Therapeutic Substance into Subcutaneous Tissue, Percutaneous Approach (ICD-10-PCS; 2018-07-23)
DX: R55 Syncope and collapse (principal); I10 Essential (primary) hypertension; E78.5 Hyperlipidemia, unspecified; E11.65 Type 2 diabetes mellitus with hyperglycemia; J45.909 Unspecified asthma, uncomplicated; R71.8 Other abnormality of red blood cells; R53.1 Weakness; R79.89 Other specified abnormal findings of blood chemistry; R77.8 Other specified abnormalities of plasma proteins; R91.8 Other nonspecific abnormal finding of lung field; I51.89 Other ill-defined heart diseases; I24.8 Other forms of acute ischemic heart disease; Z86.73 Personal history of transient ischemic attack (TIA), and cerebral infarction without residual deficits; Z79.82 Long term (current) use of aspirin; Z79.84 Long term (current) use of oral hypoglycemic drugs
CPT/HCPCS: 36415; 70450-TC; 71045-TC-FY; 71260-TC; 80053; 80061; 81003; 82550; 82553; 82962; 83036; 83721; 83735; 84100; 84443; 84484; 85025; 85610; 93005; 93010; 93306-TC; 96361; 96372; 96374; 97116-GP; 97161-GP; 99285-25; G0378; J0131; J1644

== ENCOUNTER 2020-01-23 23:56 | Emergency (ER) | payer OTHER ==
[2020-01-24] MEDS ORDERED: SODIUM CHLORIDE 0.9% 500 ML INFUS.BAG IV ONE (00:12)
[2020-01-24] MEDS ORDERED: PROPOFOL 1,000,000 MCG/100 ML VIAL IVPB SCH (00:15)
[2020-01-24] MEDS ORDERED: ACETAMINOPHEN 1000 MG/100 ML VIAL (NON FORMULARY) IVPB ONE (00:20)
[2020-01-24] MEDS ORDERED: ACETAMINOPHEN INJECTION 100 ML IVPB ONE (00:20)
[2020-01-24 00:32] LABS: BASO % 1.1 % (0-2.0); EOS % 0.6 % (0-4.5); HEMATOCRIT 32.5 % (32.4-45.2); HEMOGLOBIN 10.1 GM/dL (10.7-15.3); LYMPH % 19.3 % (8-40); MCH 21.4 pg (25.7-33.7); MCHC 31.1 g/dl (32.0-36.0); MEAN CELL VOLUME 68.7 fl (80-96); MEAN PLT VOLUME 8.3 fl (7.5-11.1); MONO % 5.8 % (3.8-10.2); NEUT % 73.2 % (42.8-82.8); PLATELET COUNT 466 K/MM3 (134-434); RBC 4.73 M/mm3 (3.60-5.2); RDW 17.3 % (11.6-15.6); WHITE BLOOD COUNT 14.2 K/mm3 (4.0-10.0)
[2020-01-24 00:37] VITALS: TEMP 101.9; BMI 24.7
[2020-01-24 00:40] LABS: INR 1.31 (0.83-1.09); PROTHROMBIN TIME (PATIENT) 15.7 SEC (9.7-13.0)
[2020-01-24 00:43] LABS: ACTIVATED PTT 30.1 SECONDS (25.2-36.5)
[2020-01-24 00:50] LABS: CHLORIDE 98 mmol/L (98-107); POTASSIUM 4.1 mmol/L (3.5-5.1); SODIUM 135 mmol/L (136-145)
[2020-01-24 00:52] LABS: CALCIUM 9.4 mg/dL (8.5-10.1)
[2020-01-24 00:53] LABS: ALBUMIN 2.8 g/dl (3.4-5.0); ANION GAP 9 MMOL/L (8-16); BLOOD UREA NITROGEN 11.1 mg/dL (7-18); CO2 28 mmol/L (21-32); GLUCOSE,RANDOM 302 mg/dL (74-106)
[2020-01-24 00:54] LABS: BILIRUBIN,DIRECT 0.2 mg/dL (0.0-0.2)
[2020-01-24 00:55] LABS: URINE APPEARANCE CLEAR; URINE BILIRUBIN NEGATIVE (NEGATIVE); URINE COLOR YELLOW; URINE GLUCOSE (UA) TRACE (NEGATIVE); URINE KETONE NEGATIVE (NEGATIVE); URINE LEUK ESTERASE NEGATIVE (NEGATIVE); URINE NITRITE NEGATIVE (NEGATIVE); URINE PROTEIN TRACE (NEGATIVE)
[2020-01-24 00:56] LABS: CREATININE 0.8 mg/dL (0.55-1.3); SGOT/AST 13 U/L (15-37); SGPT/ALT 12 U/L (13-61)
[2020-01-24 00:58] LABS: BILIRUBIN,TOTAL 0.5 mg/dL (0.2-1); TOT PROT 8.3 g/dl (6.4-8.2)
[2020-01-24 00:59] LABS: ALK PHOS 116 U/L (45-117)
[2020-01-24 01:16] LABS: VENOUS BASE EXCESS -0.7 mmol/L (-2-2); VENOUS O2 SATURATION 99.8 % (70-80); VENOUS PCO2 31.7 mmHg (38-52); VENOUS PH 7.463 (7.310-7.410)
[2020-01-24] MEDS ORDERED: MIDAZOLAM IN 0.9 % SOD.CHLORID 1 MG/1 ML PLAST..BAG ONE (01:28)
[2020-01-24] MEDS ORDERED: MIDAZOLAM IN 0.9 % SOD.CHLORID 100 MG/100 ML PLAST..BAG IVPB SCH (01:30)
[2020-01-24] MEDS ORDERED: ROCURONIUM BROMIDE 100 MG/10 ML VIAL ONE (02:15)
[2020-01-24] MEDS ORDERED: levETIRAcetam 500 MG/5 ML INJECTION VIAL IVPB ONE ×2 (02:58→03:41)
[2020-01-24 03:19] VITALS: BP 114/101; PULSE 114
[2020-01-24] MEDS ORDERED: ROCURONIUM BROMIDE 50 MG/5 ML VIAL IV ONE ×2 (03:34→03:35)
[2020-01-24] MEDS ORDERED: PIPERACILLIN/TAZOB 4.5 GM 4.5 GM in DEXTROSE 5%-WATER 100 ML IVPB ONE (03:37)
[2020-01-24] MEDS ORDERED: VANCOMYCIN 1 GM in D5W (PRE-DOCKED) 1,000 MG/250 ML IVPB ONE (03:37)
[2020-01-24] MEDS ORDERED: VANCOMYCIN 1 GRAM (PRE-DOCKED) 1,000 MG/250 ML BAG IVPB ONE (03:57)
[2020-01-24] MEDS ORDERED: PIPERACILLIN/TAZOB 4.5 GM 4.5 GM/100 ML BAG IVPB ONE (03:57)
== END 2020-01-24 04:54 | disposition short-term general hospital (02) ==
LOC: JER 23:56 → JERBED 01-24 01:55 → UNDOADMIN 01-24 01:55
PROC: 3E0333Z Introduction of Anti-inflammatory into Peripheral Vein, Percutaneous Approach (ICD-10-PCS; principal; 2020-01-23)
PROC: 3E033GC Introduction of Other Therapeutic Substance into Peripheral Vein, Percutaneous Approach (ICD-10-PCS; 2020-01-23)
PROC: 3E033NZ Introduction of Analgesics, Hypnotics, Sedatives into Peripheral Vein, Percutaneous Approach (ICD-10-PCS; 2020-01-23)
PROC: 3E03329 Introduction of Other Anti-infective into Peripheral Vein, Percutaneous Approach (ICD-10-PCS; 2020-01-23)
PROC: 3E033GC Introduction of Other Therapeutic Substance into Peripheral Vein, Percutaneous Approach (ICD-10-PCS; 2020-01-23)
PROC: 3E03329 Introduction of Other Anti-infective into Peripheral Vein, Percutaneous Approach (ICD-10-PCS; 2020-01-23)
DX: I61.8 Other nontraumatic intracerebral hemorrhage (principal); R50.9 Fever, unspecified
CPT/HCPCS: 36415; 70450-TC; 71045-TC-FY; 71275-TC; 72125-TC; 74177-TC; 80053; 81003; 82248; 82550; 82553; 82728; 82803; 83605; 83615; 84484; 85025; 85379; 85610; 85730; 86140; 86850; 86900; 86901; 87040; 87086; 93005; 93010; 99285-25; C9803; J0131; U0003